=== PATIENT | female | born 1995 | race Caucasian/White ===

== ENCOUNTER 2018-12-01 07:29 | Emergency (ER) | payer OTHER ==
[~2018-12-01] VITALS: Ht 165.1 cm; Wt 122.5 kg
[2018-12-01] MEDS ORDERED: XANAX 0.25 MG0.25 MG PO (07:52)
[2018-12-01] MEDS ORDERED: ATIVAN0.5 MG PO (08:43)
[2018-12-01 08:58] VITALS: BP 148/82
== END 2018-12-01 08:52 | disposition home or self-care (01) ==
LOC: ER 07:29
DX: F41.9 Anxiety disorder, unspecified (principal); J45.909 Unspecified asthma, uncomplicated

== ENCOUNTER 2018-12-07 13:55 | Emergency (ER) | payer OTHER ==
[~2018-12-07] VITALS: Ht 165.1 cm; Wt 122.5 kg
[~2018-12-07 13:55] MED LIST: ATIVAN0.5 MG PO; XANAX 0.25 MG0.25 MG PO
[2018-12-07 16:37] VITALS: BP 151/90
== END 2018-12-07 16:37 | disposition home or self-care (01) ==
LOC: ER 13:55
DX: M54.5 Low back pain (principal); Z88.0 Allergy status to penicillin

== ENCOUNTER 2019-02-16 20:29 | Emergency (ER) | payer OTHER ==
[~2019-02-16] VITALS: Ht 162.6 cm; Wt 127.0 kg
[2019-02-16] MEDS ORDERED: ATIVAN0.5 MG (20:38)
[2019-02-16 22:45] LABS: HEMATOCRIT 33.1 % (37.0-47.0); HEMOGLOBIN 10.9 gm/dL (12.0-15.0); MCH 26.8 pg (26.0-34.0); MCV 80.9 fL (80.0-100.0); RBC 4.09 mil/uL (4.20-5.00); RDW 15.3 % (10.5-14.5)
[2019-02-16 23:06] LABS: CALCIUM 9.3 mg/dL (8.5-10.1); CREATININE 0.9 mg/dL (0.6-1.0); POTASSIUM 3.9 mmol/L (3.5-5.1)
[2019-02-17] MEDS ORDERED: ATIVAN0.5 M1 PO (00:20)
[2019-02-17 00:35] VITALS: BP 150/85
== END 2019-02-17 00:40 | disposition home or self-care (01) ==
LOC: ER 20:29
PROVIDERS: Emergency Medicine
DX: F41.9 Anxiety disorder, unspecified (principal); R00.2 Palpitations; Z88.0 Allergy status to penicillin